=== PATIENT | male | born 1990 | race Hispanic/Latino ===

== ENCOUNTER 2023-07-29 19:54 | Emergency (ER) | payer MEDICAID, SELFPAY ==
--- NOTE | ~2023-07-29 | CT_ITS ---
EXAMINATION: CT facial & cervical spine wo DATE: 07/30/2023 00:00 INDICATION: vasovagal episode, HI, injury to R eye TECHNIQUE: Computed tomography (CT) of the maxillofacial region and cervical spine was performed with out intravenous contrast. Automated exposure control and iterative reconstruction technique were empl oyed. The dose-length product was 578.27 mGy-cm. COMPARISON: None FINDINGS: CERVICAL: Vertebral Body Alignment: Intact. Craniocervical and atlantoaxial alignment: No significant degenerative change. Alignment intact. Osseous structures/fracture: No evidence of a lytic or blastic process in the visualized spine. No e vidence of acute fracture. Cervical soft tissues: The paraspinal soft tissues planes are maintained. Degenerative changes: No significant degenerative changes. FACE: Soft Tissues: No significant superficial soft tissue swelling. Facial bones: No acute fracture. No lytic or blastic process. Eyes: The globes are intact. The soft tissue planes of the orbits are maintained. Paranasal Sinuses: Mucosal thickening in the bilateral maxillary sinuses, anterior ethmoid air cells , and the bilateral frontal sinuses. Aerated secretions in the frontal sinuses and minimally in the r ight maxillary sinus. Foreign Bodies: No radiopaque foreign bodies. Other Findings: Periapical lucency at the right central maxillary incisor. IMPRESSION: No acute fracture or traumatic malalignment in the cervical spine. No acute facial bone fracture. Aerated secretions in the paranasal sinuses may be secondary to acute sinusitis or mucosal hemorrhage in the setting of trauma. Periodontal disease. Reviewed, dictated and finalized at location K. IMPRESSION: No acute fracture or traumatic malalignment in the cervical spine. No acute fac ial bone fracture. Aerated secretions in the paranasal sinuses may be secondary to acute sinusitis or mucosal hemorrhage in the setting of trauma. Periodontal disease.
--- NOTE | ~2023-07-29 | CT_ITS ---
EXAMINATION: CT brain wo con DATE: 07/29/2023 23:55 INDICATION: vasovagal epsiode . TECHNIQUE: Computed tomography (CT) of the head was performed without intravenous contrast. The mA wa s adjusted according to patient size. Iterative reconstruction technique was employed. The dose-lengt h product was 605.33 mGy-cm. COMPARISON: None. FINDINGS: No acute intracranial hemorrhage or extra-axial fluid collection. No hydrocephalus, mass, or herniation. No acute ischemic infarct. Unremarkable dural venous sinus attenuation. No acute osseous abnormality. Mucosal thickening in the right maxillary, left ethmoid and frontal sinuses. Aerated secretions in th e frontal sinuses. The remaining aerated spaces are clear. IMPRESSION: No acute intracranial process. Aerated secretions in the frontal sinuses may be related to acute sinusitis or mucosal hemorrhage in the setting of trauma. Reviewed, dictated and finalized at location K.
[2023-07-29 20:06] VITALS: BP 132/71; PULSE 53; RESP 20; TEMP 36.5; O2SAT 99
--- NOTE | 2023-07-29 22:49 | PC.NURSE ---
report and care given to ZAKIA Mullins. all questions answered.
--- NOTE | 2023-07-29 23:01 | PC.NURSE ---
Assumed care of pt from ZAKIA Bradshaw at this time.
--- NOTE | 2023-07-29 23:07 | ED.SKABFB ---
HPI - Skin/Abscess/Foreign Bdy General Chief complaint: Skin/Abscess/Foreign Body Stated complaint: ingrown toe nail Time Seen by Provider: 07/29/23 22:06 Source: patient and family Mode of arrival: ambulatory Limitations: no limitations and language barrier History of Present Illness HPI narrative: Patient is a 33-year-old male who presents to the ED with report of a ingrown toenail to his right first toe. Patient is primarily [place]-speaking. Significant other at bedside assisted in providing information. Patient has had issues with the toe for the last 3 days. He tried removing the ingrown toenail himself, but complains of severe pain with this. Denies any drainage. Denies fevers. Related Data Allergies Allergy/AdvReac Type Severity Reaction Status Date / Time No Known Allergies Allergy Verified 07/30/23 00:20 Review of Systems Review of Systems: CONSTITUTIONAL: Denies fever, chills, or sweats. SKIN: See HPI. MUSCULOSKELETAL: See HPI. NEUROLOGIC: Denies headache, numbness, or weakness. All systems reviewed & are unremarkable except as noted in HPI and below Exam Narrative: GENERAL: Well appearing, well-nourished, non-toxic, in no acute distress. HEAD: Normocephalic, atraumatic. NECK: Supple. No adenopathy, no masses. RESPIRATORY: Airway patent, respirations nonlabored. CARDIOVASCULAR: Regular rate and rhythm without murmurs, rubs, or gallops. Pedal pulses 2+ and equal bilaterally. MUSCULOSKELETAL: Moves all extremities. Strength/ROM intact without gross deformities. SKIN: Warm, dry, normal color. No rashes. R 1st toe with paronychia along medial edge of nail, inflammation, erythema, warmth to nail edge. Fluctuance present. No purulent drainage. Significant focal TTP. NEURO: A&O X3. Speech clear. Cranial nerves II-XII grossly intact. Steady gait. No ataxic movements. PSYCHIATRIC: Appropriate mood and affect. Normal interaction. Course Vital Signs Vital signs: Vital Signs Temperature 97.7 F 07/29/23 20:06 Pulse Rate 53 L 07/29/23 20:06 Respiratory Rate 20 07/29/23 20:06 Blood Pressure 132/71 07/29/23 20:06 Pulse Oximetry 99 07/29/23 20:06 Oxygen Delivery Room Air 07/29/23 20:06 Temperature 97.7 F 07/29/23 20:06 Pulse Rate 50 L 07/30/23 01:46 Respiratory Rate 12 07/30/23 01:46 Blood Pressure 124/65 07/30/23 01:46 Pulse Oximetry 100 07/30/23 01:46 Oxygen Delivery Room Air 07/29/23 20:06 Procedures Abscess I/D foot: Date of Incision: 07/30/23 Time of Incision: 00:30 Side (if applicable): left Sedation/analgesia: none Local Anesthetic: other anesthetic (digital block) Technique: needle aspiration (used 18 gauge needle to make small incision along nail edge) Amount of fluid expressed (mL): 5 Irrigation: Yes Packing used?: none I&D Results: Pus and Blood Complications: other (none) Nerve Block Nerve Block 1: Nerve block date: 07/29/23 Nerve block time: 23:20 Time out performed: Yes Local Anesthetic: lidocaine 1% Amount of anesthesia used (mL): 5 Side: right Nerve Blocks: digital (1st toe) Procedure Successful: Yes Patient Tolerated Procedure: well and no complications Complications: none MDM - Skin/Abscess/Foreign Bdy MDM Narrative Medical decision making narrative: Patient presented to ED with 3-day history of ingrown toenail to right first toe. Exam consistent with paronychia with significant fluctuance present. Discussed performing digital nerve block and draining paronychia. Patient in agreement. Digital nerve block performed to allow for paronychia drainage. As I was finishing the nerve block, patient had a syncopal episode and fell off the ED stretcher. He did hit his head on an IV pole nearby and sustained a small abrasion to his right periorbital region. No deep lacerations to require repair. Patient regained consc
[2023-07-29] MEDS: LIDOCAINE HCL 1% LOCAL INJ 10 ML VIAL 5 ML INFILTRATE (23:19)
[2023-07-29 23:25] VITALS: BP 117/60; PULSE 35; RESP 20; O2SAT 100
[2023-07-29 23:30] VITALS: BP 121/76; PULSE 51; RESP 19; O2SAT 100
--- NOTE | 2023-07-29 23:34 | ECG_ITS ---
Measurements Intervals [place] Rate: 45 P: 33 AR: 129 QRS: 19 QRSD: 95 T: 12 QT: 373 QTc: 326 Interpretive Statements SINUS BRADYCARDIA NO PREVIOUS ECG AVAILABLE FOR COMPARISON Electronically Signed On 07-30-2023 12:56:13 CDT by Allison Rodriguez M.D.
[2023-07-29 23:40] VITALS: PULSE 40
[2023-07-29 23:53] LABS: Basophils Absolute Auto 0.1 K/mm3 (0.0-0.1); Basophils Percent Auto 0.8 % (0.2-1.2); Eosinophils Absolute Auto 0.6 K/mm3 (0-0.3); Hematocrit 44.3 % (42.0-52.0); Hemoglobin 15.2 g/dL (14.0-18.0); Immature Granulocyte Absolute 0.03 K/mm3 (0.00-0.031); Immature Granulocyte Percent A 0.4 % (0-0.5); Lymphocytes Absolute Auto 4.53 K/mm3 (0.9-3.2); Mean Corpuscular HGB Conc 34.3 g/dl (32-36); Mean Corpuscular Hemoglobin 31.7 pg (26-34); Mean Corpuscular Volume 92.5 fl (80-100); Mean Platelet Volume 9.8 fl (7.4-10.4); Monocytes Absolute Auto 0.5 K/mm3 (0.1-0.6); Monocytes Percent Auto 6.1 % (2.6-8.5); Neutrophils Absolute Auto 2.7 K/mm3 (1.3-6.7); Neutrophils Percent Auto 31.7 % (45.5-73.1); Platelet Count Result 200 k/mm3 (150-375); Red Blood Count 4.79 M/mm3 (4.6-6.20); Red Cell Distribution Width 12.4 % (11.5-14.5); White Blood Count 8.4 K/mm3 (4.5-10.0)
[2023-07-30 00:05] LABS: Alanine Aminotransferase 28 U/L (6-50); Albumin Level 4.5 g/dL (3.5-5.1); Alkaline Phosphatase 94 U/L (38-126); Anion Gap 6 mmol/L (8-16); Aspartate Amino Transferase 29 U/L (17-59); Bilirubin,Total 0.5 mg/dL (0.2-1.3); Blood Urea Nitrogen 10 mg/dL (9-20); Calcium 8.8 mg/dL (8.4-10.2); Carbon Dioxide 29 mmol/L (22-30); Chloride 102 mmol/L (98-107); Estimated CRCL calculation 102 ml/min; Estimated Glomerular Filt Rate > 60; Glucose 108 mg/dL (65-110); Potassium 3.9 mmol/L (3.4-5.0); Sodium 137 mmol/L (137-145)
[2023-07-30] MEDS: SODIUM CHLORIDE 0.9% IV 1,000 ML 999 ML IV CONT (00:20)
[2023-07-30] MEDS: ONDANSETRON INJ 4 MG/2 ML VIAL IV PUSH (00:21)
[2023-07-30] MEDS: PLEASE ENTER ALLERGY INFO 1 EACH XX (00:22)
[2023-07-30] MEDS: DOXYCYCLINE HYCLATE 100 MG TABLET PO (00:22)
[2023-07-30 00:23] VITALS: BP 122/72; PULSE 70; RESP 13; O2SAT 100
[2023-07-30 00:46] VITALS: BP 125/72; PULSE 63; RESP 14; O2SAT 100
[2023-07-30 01:01] VITALS: BP 122/70; PULSE 52; RESP 13; O2SAT 100
[2023-07-30 01:46] VITALS: BP 124/65; PULSE 50; RESP 12; O2SAT 100
== END 2023-07-30 01:48 | disposition home or self-care (01) ==
PROVIDERS: Emergency Provider Physician Assistant
DX: L03.031 Cellulitis of right toe (principal); L60.0 Ingrowing nail; S00.211A Abrasion of right eyelid and periocular area, initial encounter; W06.XXXA Fall from bed, initial encounter; R00.1 Bradycardia, unspecified
CPT/HCPCS: 10160; 36415; 70450; 70486; 72125; 80053; 83735; 85025; 93005; 96361; 96374; 99284; A9270; J2405; J7030